=== PATIENT | male | born 1950 | race Caucasian/White ===

== ENCOUNTER 2018-01-10 06:08 | Emergency (ER) | payer MEDICARE, BC ==
[~2018-01-10] VITALS: Ht 172.7 cm; Wt 115.7 kg
[2018-01-10] MEDS ORDERED: OXYCODONE-ACETAMINOPHEN 5-325 (06:29)
[2018-01-10] MEDS ORDERED: PENICILLIN VK 500 MG TABLET (06:29)
--- NOTE | 2018-01-10 06:34 | NUR ---
PT IN BED. MD YOUSIF AT BEDSIDE CONDUCTING MED EVAL.
[2018-01-10] MEDS ORDERED: LIDOCAINE 4% TOPICAL 50 ML BOTTLE ONE (06:39)
[2018-01-10] MEDS ORDERED: LIDOCAINE 4% TOPICAL 50 ML BOTTLE TP ONE (06:45)
--- NOTE | 2018-01-10 06:50 | NUR ---
FOREIGN BODY REMOVED FROM RT EAR BY MD YOUSIF. PROCEDURE WELL TOLERATED BY PT.
--- NOTE | 2018-01-10 06:57 | NUR ---
Patient discharged to home in stable conditon. Written and verbal after care instructions given. Patient verbalizes understanding of instructions. Patient able to ambulate unassisted with steady gait. Patient left with all personal belongings.
[2018-01-10 06:59] VITALS: BP 132/78
== END 2018-01-10 06:57 | disposition home or self-care (01) ==
LOC: ER 06:15
DX: S00.451A Superficial foreign body of right ear, initial encounter (principal); I25.2 Old myocardial infarction; E11.9 Type 2 diabetes mellitus without complications; Z88.8 Allergy status to other drugs, medicaments and biological substances; Z79.891 Long term (current) use of opiate analgesic; Z79.2 Long term (current) use of antibiotics; X58.XXXA Exposure to other specified factors, initial encounter; Y93.89 Activity, other specified; Y92.89 Other specified places as the place of occurrence of the external cause; Y99.8 Other external cause status
CPT/HCPCS: A4663